=== PATIENT | female | born 1975 | race Hispanic/Latino ===

== ENCOUNTER 2016-10-12 11:01 | Emergency (ER) | payer MEDICARE, MEDICAID ==
[~2016-10-12] VITALS: Ht 170.2 cm; Wt 181.8 kg
[2016-10-12 11:05] VITALS: BP 148/94; PULSE 65; RESP 16; O2SAT 97
--- NOTE | 2016-10-12 11:18 | ED.REPORT ---
HPI-Abd Pain F Under 40 Date of Service Oct 12, 2016 ED Provider: Diana is a 40-year-old female who presents with a chief complaint of vaginal bleeding. Patient reports a 3 month history of vaginal bleeding that has worsened today to the point where she has noticed "tennis ball sized clots" and has to change her pad every 30 minutes. She also complains of crampy lower abdominal and right leg pain, weakness, "hot flashes." Patient states that she is being treated by Dr. Adolfo Bustamante for this. She reports a trial of "some kind of control" which temporarily reduce the bleeding but "made me feel funny" so she discontinued. States the bleeding came back worse after that. She does not use an IUD, implant or OCP. She admits a history of irregular, painful menses as well as cysts. History of appendectomy. Denies fever, chills , sweats, vomiting, diarrhea, bloody/tarry stool, urinary symptoms, shortness of breath, palpitations, bleeding disorder. Nursing Notes Stated Complaint: ABDOMINAL PAIN Chief Complaint: Female Abdominal Pain Nursing Notes Reviewed: Yes Allergies: Coded Allergies: No Known Allergies (Verified , 10/12/16) Scheduled PRN Hydrocodone-Acetaminophen 5-325 mg (Hydrocodone-Acetaminophen 5-325 mg) 1 Each Tablet 1-2 TABLET PO Q4H PRN PRN For Pain General Time Seen by MD: 11:18 Chief Complaint Vaginal bleeding Past Medical History Past Medical History Denies: Bleeding disorder, Cancer, Diabetes mellitus Review of Systems General: Denies fever, chills, malaise. HEENT: Denies congestion, headache, sore throat. Respiratory: Denies dyspnea, cough, shortness of breath, wheezing. Cardiovascular: Denies chest pain, palpitations. Gastrointestinal: Admits to lower abdominal pain. Denies vomiting, diarrhea. Genitourinary: Denies frequency, urgency, dysuria, hematuria. Admits vaginal bleeding. Otherwise as noted in HPI. Physical Exam General: Well appearing, morbidly obese, no acute distress. Head: Atraumatic, normocephalic. Eyes: No scleral icterus or injection. No discharge. Vision grossly intact. No conjunctival pallor ENT: Voice clear, hearing grossly intact. Respiratory: Regular rate and rhythm. Breath sounds present, clear to auscultation and equal bilaterally. No respiratory distress. No increased work of breathing, speaks in complete sentences. Cardiovascular: Regular rate and rhythm, without murmur, gallop or rub. No pedal edema. Gastrointestinal: Obese abdomen tender in the lower quadrants without guarding or rebound. Bowel sounds normoactive. Genitourinary: Normal external genitalia without lesions. Obvious bloody discharge. Cervix appears normal with blood dark, clotted blood hemorrhage in from the os. Not erythematous or friable. Negative cervical motion tenderness. Negative adnexal tenderness. Adnexa not appreciated. Skin: Warm and dry. Neurological: Grossly nonfocal. Psychological: Alert and oriented. Speech appropriate, linear and logical. Behavior appropriate. Initial Vital Signs Vital Signs (First) Date Time Temp Pulse Resp B/P Pulse Ox O2 Delivery O2 Flow Rate FiO2 10/12/16 11:05 36.3 65 16 148/94 97 Room Air Initial VS: Reviewed, Vital signs abnormal (elevated BP) Interpretation & Diagnostics Lab Results Interpretation Result Diagram: 10/12/16 1310 10/12/16 1310 Test 10/12/16 13:10 10/12/16 13:11 10/12/16 13:30 White Blood Count 8.6th/mm3 (3.8-10.1) Red Blood Count 3.88mil/mm3 (3.90-5.20) Hemoglobin 11.3g/dL (12.0-15.6) Hematocrit 34.7% (35.0-46.0) Mean Corpuscular Volume 89.4fL (81-100) Mean Corpuscular Hemoglobin 29.1pg (27.0-35.0) Mean Corpuscular Hemoglobin Concent 32.6% (32.0-37.0) Red Cell Distribution Width 12.5% (12.3-15.4) Platelet Count 336bil/L (150-400) Neutrophils (%) (Auto) 55.2% (40-74) Lymphocytes (%) (Auto) 31.2% (14-46) Monocytes (%) (Auto) 7.2% (4-12) Eosinophils (%) (Auto) 6.0% (0-5) Basophils (%) (Auto) 0.3% (0-3) Prothrombin Time 9.9sec (8.1-12.5) Prothromb Time International Ratio 0.93ratio Activated Partial Thromboplast Time 28.8sec (22.8-33.0) Sodium Level 136mEq/L (134-144) Potassium Level 4.4mEq/L (3.5-5.2) Chloride Level 101mEq/L (97-108) Carbon Dioxide Level 24mmol/L (18-29) Blood Urea Nitrogen 15mg/dL (6-20) Creatinine 0.62mg/dL (0.57-1.00) Estimat Glomerular Filtration Rate 154mL/min (>59) Glucose Level 110mg/dL (60-99) Calcium Level 8.8mg/dL (8.5-10.1) Total Bilirubin 0.2mg/dL (0.0-1.2) Aspartate Amino Transf (AST/SGOT) 31U/L (0-50) Alanine Aminotransferase (ALT/SGPT) 31U/L (0-32) Alkaline Phosphatase 96U/L (25-150) Total Protein 7.3g/dL (6.4-8.4) Albumin 3.7g/dL (3.4-5.0) Hold Chakraborty Top Tube Received (Received) Hold Urine Received (Received) Re-Eval/Medical Decision Med Decision/Clinical Course Otherwise healthy 40-year-old female presents with a chief complaint of vaginal bleeding for the last 3 months. Associated crampy lower abdominal pain. She has been addressing this with her primary care provider, she gains brief relief from symptoms using oral contraceptive pills, but did not like how it made her feel. Just because of bleeding is worsening for last couple days where she has to change her pad every 30 minutes. Physical exam reveals mild lower quadrant tenderness without guarding or rebound. External genitalia are normal without lesion, bleeding is obvious. Cervix appears normal with dark clotted blood emerging from the os. Negative cervical motion tenderness and adnexa not appreciated. Patient test negative, mild anemia noted CBC and CMP otherwise essentially normal Discussed results with Dr. hidalgo. We feel we can safely rule out ectopic , torsed ovary appears unlikely. We believe she is stable and safe for discharge to home with primary care follow-up on Friday. I discussed this with the patient feels comfortable with the plan. Provided a small amount of pain medication and return precautions Discharge & Departure Primary Impression: Uterine bleeding Disposition: Home Discharge Condition All VS Reviewed: Yes Condition: Stable Patient Instructions: Dysfunctional Uterine Bleeding (ED) Additional Instructions: Evaluation for vaginal bleeding the emergency department. Unfortunately I was not able to determine the cause of your vaginal bleeding. However we feel confident this time the do not have a dangerous condition such as a torsed ovary , ectopic or pelvic inflammatory disease. Your labs show a mild anemia, which you say is chronic, and her vital signs are normal. I believe you are stable and safe to be discharged to home and follow-up on Friday with Dr. Infante. I recommend 800 mg of ibuprofen every 6 hours for pain. I will give you a prescription for a small amount of Vicodin to be used for pain not controlled by ibuprofen. Do not drive or drink alcohol 4 hours of taking this medication. Follow-up with Dr. Infante as planned on Friday. Return to the emergency department for any new or worsening symptoms including increasing pain, fever. Referrals: Gene Infante MD EDSupervising Provider for APC: Yong Hidalgo MD Attending Statment Attending attestation: I saw this patient in conjunction with Chaka Oviedo PA-C. I agree with the workup, evaluation, treatment and disposition. Yong Hidalgo MD copies to: Gene Infante MD, Beck O MD Oct 12, 2016 11:18 Chaka Oviedo PA-C Oct 12, 2016 11:53
[2016-10-12] MEDS ORDERED: Ketorolac 30 mg/mL 2 mL Inj IM ONE (11:25)
[2016-10-12 13:18] LABS: BASOPHILS % (AUTO) 0.3 % (0-3); MONOCYTES % (AUTO) 7.2 % (4-12); Mean Corpuscular Hemoglobin 29.1 pg (27.0-35.0); Mean Corpuscular Volume 89.4 fL (81-100); NEUTROPHILS % (AUTO) 55.2 % (40-74); Platelet Count 336 bil/L (150-400)
[2016-10-12 13:38] LABS: INR 0.93 ratio
[2016-10-12] MEDS ORDERED: HYDR-4003 PO (14:31)
[2016-10-12] MEDS ORDERED: HYDROcodone-APAP 5-325 mg Tablet PO ONE (14:35)
[2016-10-12 15:20] VITALS: PULSE 70; O2SAT 97
== END 2016-10-12 15:20 | disposition home or self-care (01) ==
LOC: SED 11:01
DX: N93.9 Abnormal uterine and vaginal bleeding, unspecified (principal); R10.30 Lower abdominal pain, unspecified; M79.604 Pain in right leg; R53.1 Weakness; N95.1 Menopausal and female climacteric states; Z87.42 Personal history of other diseases of the female genital tract; Z90.89 Acquired absence of other organs